=== PATIENT | female | born 1960 | race Caucasian/White ===

== ENCOUNTER → 2016-10-18 | Day surgery (SDC) | payer OTHER ==
[~2016-10-18] MED LIST: LACTATED RINGER'S 1,000 ML BAG IV ONE; PROPOFOL 500 MG/50 ML BTL IV ONE
--- NOTE | 2016-10-18 11:21 | GIPROC ---
[facility] [address] [facility], [address] COLONOSCOPY PROCEDURE REPORT EXAM DATE: 10/18/2016 PATIENT NAME: Shelbie Plata MR #: [id number] BIRTHDATE: 1960 ENDOSCOPIST: Keysha Farias MD ORDER #: [id number] CATCHER PLUG: Lucille Ramey EXTERIOR DOOR INSTALLER STATUS: outpatient INDICATIONS: The patient is a 56 yr old female here for a colonoscopy due to chronic diarrhea and constipation PROCEDURE PERFORMED: Colonoscopy with biopsy Colonoscopy with polypectomy MEDICATIONS: None and Per Anesthesia. PREP QUALITY: good ESTIMATED BLOOD LOSS: None CONSENT: The patient understands the risks and benefits of the procedure and understands that these risks include, but are not limited to: sedation, allergic reaction, infection, perforation and/or bleeding. Alternative means of evaluation and treatment include, among others: physical exam, x-rays, and/or surgical intervention. The patient elects to proceed with this endoscopic procedure. medical equipment was checked for proper function. Hand hygiene and appropriate measures for infection prevention was taken. After the risks, benefits and alternatives of the procedure were thoroughly explained, Informed consent was verified, confirmed and timeout was successfully executed by the treatment team. A digital exam revealed no abnormalities of the rectum The EC-[id number] ([id number] endoscope was introduced through the anus and advanced to the cecum, which was identified by both the appendix and ileocecal valve. The instrument was then slowly withdrawn as the colon was fully examined. COLON FINDINGS: One polyp in the sigmoid removed by snare. 2 polyps in the rectum removed by snare. The colon mucosa was otherwise normal. A biopsy was performed. Bx from cecum and sigmoid for diarrhea. Retroflexed views revealed no abnormalities and Retroflexed views revealed small internal hemorrhoids The scope was then completely withdrawn from the patient and the procedure terminated. ADVERSE EVENTS: There were no complications. IMPRESSIONS: 1. One polyp in the sigmoid removed by snare 2. 2 polyps in the rectum removed by snare 3. The colon mucosa was otherwise normal; biopsy was performed 4. Bx from cecum and sigmoid for diarrhea 5. Retroflexed views revealed no abnormalities 6. Retroflexed views revealed small internal hemorrhoids 7. Revealed no abnormalities of the rectum 8. Possible IBS RECOMMENDATIONS: 1. Await biopsy results. Biopsy results will not be ready for 7-10 days. If you don't hear from us in two weeks, call our office for results. 2. High fiber diet 3. Yearly hemoccult 4. EGD as outpatient in RECALL: Return 3 years Colonoscopy Keysha Farias MD eSigned: Keysha Farias MD 10/18/2016 11:20 AM cc: Gill Mcdermott M.D. PATIENT NAME: Shelbie Plata MR#: [id number]
== END | disposition home or self-care (01) ==
LOC: ESDC 09:01
PROVIDERS: ATTEND Hospitalist
DX: R19.7 Diarrhea, unspecified (principal); K59.00 Constipation, unspecified; D12.5 Benign neoplasm of sigmoid colon; K62.1 Rectal polyp; K64.8 Other hemorrhoids
CPT/HCPCS: 00810; 45380; 45385; 88305; J7120